=== PATIENT | female | born 1995 | race Caucasian/White ===

== ENCOUNTER 2018-07-26 01:09 | Emergency (ER) | payer SELFPAY ==
[~2018-07-26] VITALS: Ht 154.9 cm; Wt 54.0 kg
[2018-07-26] MEDS ORDERED: ACETAMINOPHEN 325MG TABLET PO ONE (02:00)
[2018-07-26 14:54] VITALS: BP 102/61
== END 2018-07-26 15:13 | disposition home or self-care (01) ==
LOC: ER 01:09
DX: M54.5 Low back pain (principal); Z65.4 Victim of crime and terrorism; R51 Headache; Y08.89XA Assault by other specified means, initial encounter; Y93.89 Activity, other specified; Y92.89 Other specified places as the place of occurrence of the external cause; Y99.8 Other external cause status
CPT/HCPCS: 76815; 81025; 99284